=== PATIENT | male | born 1940 | race Hispanic/Latino ===

== ENCOUNTER 2016-10-03 06:01 | Day surgery (SDC) | payer MEDICARE ==
[2016-08-05 10:18] VITALS: BMI 22.3
[2016-10-03] MEDS ORDERED: Lactated Ringer's 1,000 ML IV ONE (06:45)
[2016-10-03] MEDS ORDERED: Propofol 10 mg/ml Inj (20 ML) ONE (07:08)
[2016-10-03] MEDS ORDERED: Succinylcholine 200 mg/10 ml Inj IV ONE (07:09)
[2016-10-03] MEDS ORDERED: Midazolam 2 MG/2 ML VIAL ONE (07:09)
[2016-10-03] MEDS ORDERED: Lidocaine 4% (Laryng-O-Jet) Kit MM ONE (07:09)
[2016-10-03] MEDS ORDERED: ePHEDrine 50 mg/ml Inj ONE (07:13)
[2016-10-03] MEDS ORDERED: Absorbable Gelatin Sponge Size 100 ONE (07:16)
[2016-10-03] MEDS ORDERED: Thrombin Topical 5,000 IU Spray Kit ONE (07:16)
[2016-10-03] MEDS ORDERED: Bacitracin Ointment 30 GM TUBE ONE (07:16)
[2016-10-03] MEDS ORDERED: Morphine 1 mg/ml preservative-free Inj(Duramorph) ONE (07:37)
[2016-10-03] MEDS ORDERED: Bupivacaine 0.5% Inj(30mL) ONE (07:38)
[2016-10-03] MEDS ORDERED: MethylPREDNISolone Depo 40 mg/ml Inj ONE (07:38)
[2016-10-03] MEDS ORDERED: Dexamethasone 4 mg/1 ml ONE (08:12)
[2016-10-03] MEDS ORDERED: Lactated Ringer's 1,000 ML IV SCH (10:00)
[2016-10-03 11:34] VITALS: RESP 20
[2016-10-03 12:52] VITALS: BP 138/66; PULSE 86; TEMP 98.6; O2SAT 97
--- NOTE | 2016-10-03 13:28 | PCM.SURG1 ---
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 prominent medial epicondyle. thickened intermuscular septum. Left elbow Post-Operative Diagnosis: as above Operation Performed: Exploration/decompression L ulnar nerve. ulnar neurolysyis. applx posterior splint. osteoplasty medial epicondyle L elbow. excision inetemuscular septum Specimen/Specimens Removed: septum/bone/epineurium Estimated Blood Loss: EBL {In ML}: 10 Blood Products Given: N/A Drains Used: No Drains Post-Op Condition: Good Date of Surgery/Procedure: 10/03/16 Time of Surgery/Procedure: 08:50 (time in room 7:50/anaesthesia indcution time 7 :50)
--- NOTE | 2016-10-04 12:25 | OP ---
PROCEDURE DATE: 10/03/2016 PREOPERATIVE DIAGNOSIS: Tardy ulnar nerve palsy, left elbow. POSTOPERATIVE DIAGNOSIS: Tardy ulnar nerve palsy, left elbow, with impingement from the medial epico ndyle. PROCEDURES: 1. Ulnar nerve decompression at the elbow. 2. Ulnar neurolysis. 3. Partial medial epicondylectomy. 4. Resection intermuscular septum. 5. Application of volar splint. SURGEON: Salbador Corral MD PHOTOGRAPHER ASSISTANT: Winifred Reyez, Certified Registered Nursing Associate Of Science In Nursing. SECOND FIELD [employer] FARMWORKER: Lorenzo Amaral. ANESTHESIA: General endotracheal anesthesia; Dr. Pineda. COMPLICATIONS: No complications. DRAINS: No drains. OPERATIVE INDICATION: The patient is a gentleman who is well known to my practice who has been havin g left upper extremity difficulty, pain and restricted range of motion for a period of time. The pat ient has got wasting of the ulnar innervated hand musculature. The patient presents at this time wit h a positive EMG. The patient has undergone shoulder surgery with success. Pros, cons, risks and be nefits of surgical approach were discussed. The possibility of nerve injury, mechanical failure, inf ection, thromboembolic disease discussed at length. The patient can no longer stand the discomfort. OPERATIVE PROCEDURE: After having obtained informed consent in the above fashion, after having ident ified the side, site and procedure in a critical pause/timeout, after the satisfactory induction of t he anesthetic, the patient identified as the patient in the supine position with all bony prominences well padded. The left upper extremity is prepped and free draped in the usual fashion for upper ext remity surgery. The tourniquet had been applied, but is not yet inflated. After exsanguinating the limb using a 4-inch Esmarch bandage, the tourniquet, which had been applied, is inflated to 250 mmHg. The hemostasis controlled. Dissection was carried down to the ulnar groove. Great care is taken t o avoid injury to the ulnar nerve. The brachial fascia is identified and is divided. The intermuscu lar septum was found to be impinging ulnar nerve. The ulnar nerve was identified at the ulnar groove and this having been accomplished, it is carefully dissected free from the ulnar groove posteriorly using a tenotomy scissors under magnification, 2.0 magnification eyeglass control. This having been accomplished, the nerve is carefully dissected. At this point in time, the flexure pronator mass is elevated carefully using #15 blade from the medial epicondyle. This having been accomplished, the fl exure pronator is turned down. This having been accomplished, the nerve is identified and a careful ulnar neurolysis is accomplished. The ulnar nerve is swung anteriorly, and this having been accompli shed, a portion of the intermuscular septum was excised. Resection of the intermuscular septum/fasci a is accomplished, essentially fasciotomy with excision of the intermuscular septum. A careful ulnar neurolysis accomplished under direct vision. The ulnar nerve is then snared with a Baldwin drain. It is protected with a lap sponge and using a small oscillating saw, a partial medial epicondylectomy is accomplished. Osteoplasty is accomplished using a bur. The wound is thoroughly irrigated. Clos ure of the flexure pronator mass accomplished. The ulnar nerve is protected. The wound is thoroughl y irrigated. Closure is in layers with interrupted Quill after repair of the flexor pronator mass. Closure is with interrupted Vicryl, Quill and vera for skin. Surinder Silveira compression dressing is applied. The patient is intact and stable in recovery. Salbador Corral MD cc: [id number] TT: 10/04/2016 12:24:14 an
== END 2016-10-03 13:58 | disposition home or self-care (01) ==
LOC: H.OPSURG 06:01
PROVIDERS: ATTEND Orthopaedic Surgery
DX: G56.22 Lesion of ulnar nerve, left upper limb (principal); E78.5 Hyperlipidemia, unspecified; I10 Essential (primary) hypertension; C18.9 Malignant neoplasm of colon, unspecified; M25.822 Other specified joint disorders, left elbow
CPT/HCPCS: 64718; 64727; 88307; J0330; J0690; J1100; J2001; J2250; J2704; J3010; J7030; J7120